=== PATIENT | female | born 1995 | race Caucasian/White ===

== ENCOUNTER 2017-09-01 13:22 | Observation (INO) | payer BC ==
[~2017-09-01] VITALS: Ht 165.1 cm; Wt 59.9 kg
[2017-09-01] MEDS ORDERED: SODIUM CHLORIDE 0.9% 1000ML 1,000 ML IV STA (14:18)
[2017-09-01] MEDS ORDERED: LISD30CA4 PO (14:42)
[2017-09-01 14:46] LABS: BASO % 0.5 %; BASO ABS # 0.03 K/uL (0-0.2); EOS % 2.1 %; EOS ABS # 0.12 K/uL (0-0.5); HEMATOCRIT 43.2 % (37-47); HEMOGLOBIN 15.1 g/dL (12.0-16.0); IG# 0.01 K/uL (0.00-0.02); LYMPH % 25.6 %; LYMPH ABS # 1.49 K/uL (1.2-3.4); MEAN CELL VOLUME 90.6 fL (80-100); MEAN CORPUSCULAR HEMOGLOBIN 31.7 pg (25-34); MEAN PLATELET VOLUME 10.5 fL (7.4-10.4); MONO % 6.7 %; MONO ABS # 0.39 K/uL (0.11-0.59); NEUT % 64.9 %; NEUT ABS # 3.79 K/uL (1.4-6.5); PLATELET COUNT 198 K/uL (130-400); RED CELL DISTRIBUTION WIDTH CV 13.4 % (11.5-14.5); RED CELL DISTRIBUTION WIDTH SD 44.2 fL (36.4-46.3); WHITE BLOOD COUNT 5.83 K/uL (4.8-10.8)
--- NOTE | 2017-09-01 14:49 | EMERGENCY ROOM VISIT NOTE ---
History Report prepared by Yunior: Edith Madden Under the Supervision of: Dr. Isidro Chen M.D. First contact with patient: 14:10 Chief Complaint: ABDOMINAL PAIN Stated Complaint: SEVERE STOMACH PAINS, NAUSEA Nursing Triage Summary: Pt reports mid abd pain and nausea since . Constipated x 2, did have a bowel movement today that was diarrhea. Hx of IBS. History of Present Illness The patient is a 21 year old female who presents to the Emergency Room with complaints of persistent mid abdominal pain starting 2 days ago. The patient currently rates her discomfort as a 6/10 in severity. The pain worsens with bending over, walking, coughing, and any type of movement. She has tried taking Tylenol to no significant relief. She has a history of IBS, but states that this pain is different from her typical IBS pain. She was constipated for the past 2 days and then had significant diarrhea today. She is having intermittent nausea and vomiting. She is not eating and drinking normally because of her symptoms. Her last menstrual period ended yesterday. She is on control. 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 She had open heart surgery for sinus venosus defect at age 14. She denies any previous abdominal surgeries. She has had several scopes in the past. She notes a history of H pylori and ulcers. Pt denies LOC, headache, fevers, chills, diaphoresis, visual changes, neck pain, chest pain, breathing difficulties, back pain, melena, hematochezia, urinary symptoms, numbness, weakness, lymphadenopathy, rash, or other complaints. Source of History: patient Onset: 2 days ago Position: abdomen (mid) Symptom Intensity: 6/10 Timing: other (persistent) Modifying Factors (Worsening): movement Associated Symptoms: + nausea, + vomiting, + diarrhea Note: Pt reports constipation. Review of Systems See HPI for pertinent positives and negatives. A total of ten systems were reviewed and were otherwise negative. Past Medical & Surgical Medical Problems: (1) IBS (irritable bowel syndrome) Family History Not known due to adoption Social History Smoking Status: Never Smoker Housing Status: lives with roommate Occupation Status: [employer] student Current/Historical Medications Scheduled PRN Lisdexamfetamine Dimesylate (Vyvanse), 30 MG PO DAILY PRN for PRN Allergies Coded Allergies: Lactose Intolerance (GI) (Unverified Allergy, Mild, GI SYMPTOMS, 09/01/17) Physical Exam Vital Signs Date Time Temp Pulse Resp B/P (MAP) Pulse Ox O2 Delivery O2 Flow Rate FiO2 09/01/17 17:37 58 20 119/63 100 Room Air 09/01/17 15:51 55 16 117/84 100 Room Air 09/01/17 15:26 60 16 98 Room Air 09/01/17 13:26 36.5 78 18 140/76 100 Room Air Physical Exam GENERAL: Awake, alert, well-appearing, in no distress HENT: Normocephalic, atraumatic. Oropharynx unremarkable. EYES: Normal conjunctiva. Sclera non-icteric. NECK: Supple. No nuchal rigidity. FROM. No masses. RESPIRATORY: Clear to auscultation. No wheezes. No rales. Normal respiratory effort. CARDIAC: Normal rate. Normal rhythm. No murmurs. No rubs. Extremities warm and well perfused. Pulses equal. No JVD. GI: Soft, non-distended. Minimal right lower and left lower tenderness to palpation. Moderate periumbilical tenderness to palpation. No rebound or guarding. No masses. RECTAL: Deferred. MUSCULOSKELETAL: Atraumatic. Chest examination reveals no tenderness. The back is symmetrical on inspection without obvious abnormality. There is no CVA tenderness to palpation. No joint edema. LOWER EXTREMITIES: Calves are equal size bilaterally and non-tender. No edema. No discoloration. NEURO: Normal sensorium. No sensory or motor deficits noted. SKIN: No rash or jaundice noted. Medical Decision & Procedures ER Provider Diagnostic Interpretation: Radiology results as stated below per my review and radiologist interpretation: ABD/PELVIS IV AND ORAL CONT CLINICAL HISTORY: 21 years-old Female presenting with acute lower abdominal pain. TECHNIQUE: Multidetector CT of the abdomen and pelvis was performed after the administration of oral and intravenous contrast. IV contrast: 93 mL of Optiray 320. A dose lowering technique was used consistent with the principles of ALARA (as low as reasonably achievable). COMPARISON: None. CT DOSE (mGy.cm): The estimated cumulative dose is 255.03 mGy.cm. FINDINGS: General Administrator topogram: Unremarkable. Lung bases: Lungs and pleural spaces clear. Normal heart size. No pericardial or pleural effusion. Liver: Normal morphology. No liver lesion. Mild periportal edema may be present. Patent hepatic vasculature. Biliary: No intrahepatic or extrahepatic biliary ductal dilatation. Normal gallbladder. Pancreas: Normal. Spleen: Normal. Adrenal glands: Normal. Kidneys and ureters: Normal. No hydronephrosis. Distal ureters poorly visualized. Bladder: Normal. Pelvic organs: Uterus and ovaries normal. Bowel: Significantly dilated and nonopacified appendix in the right lower quadrant. The appendix measures 15 mm in diameter. Significant surrounding periappendiceal fat infiltration. Numerous associated prominent mesenteric lymph nodes though no discrete adjacent fluid collection is evident. No bowel obstruction. Peritoneal cavity: No free fluid or intraperitoneal gas. No evidence of abscess. Lymph nodes: Prominent right lower quadrant mesenteric lymph nodes. No pathologically enlarged lymph nodes in abdomen or pelvis. Vasculature: Aorta and IVC patent and normal in caliber. Abdominal wall: Normal. Musculoskeletal: Normal. IMPRESSION: 1. Findings consistent with acute uncomplicated appendicitis. No perforation or abscess. Surgical consultation recommended. The report will be called/faxed according to standard departmental protocol. Electronically signed by: Parminder Vallejo M.D. 09/01/2017 5:29 PM Dictated Date/Time: 09/01/2017 5:25 PM Laboratory Results 09/01/17 14:05 Red Blood Count 4.77, Mean Corpuscular Volume 90.6, Mean Corpuscular Hemoglobin 31.7, Mean Corpuscular Hemoglobin Concent 35.0, Mean Platelet Volume 10.5, Neutrophils (%) (Auto) 64.9, Lymphocytes (%) (Auto) 25.6, Monocytes (%) (Auto) 6.7, Eosinophils (%) (Auto) 2.1, Basophils (%) (Auto) 0.5, Neutrophils # (Auto) 3.79, Lymphocytes # (Auto) 1.49, Monocytes # (Auto) 0.39, Eosinophils # (Auto) 0.12, Basophils # (Auto) 0.03 09/01/17 14:05 Test 09/01/17 14:05 09/01/17 14:10 White Blood Count 5.83 K/uL (4.8-10.8) Red Blood Count 4.77 M/uL (4.2-5.4) Hemoglobin 15.1 g/dL (12.0-16.0) Hematocrit 43.2 % (37-47) Mean Corpuscular Volume 90.6 fL (80-100) Mean Corpuscular Hemoglobin 31.7 pg (25-34) Mean Corpuscular Hemoglobin Concent 35.0 g/dl (32-36) Platelet Count 198 K/uL (130-400) Mean Platelet Volume 10.5 fL (7.4-10.4) Neutrophils (%) (Auto) 64.9 % Lymphocytes (%) (Auto) 25.6 % Monocytes (%) (Auto) 6.7 % Eosinophils (%) (Auto) 2.1 % Basophils (%) (Auto) 0.5 % Neutrophils # (Auto) 3.79 K/uL (1.4-6.5) Lymphocytes # (Auto) 1.49 K/uL (1.2-3.4) Monocytes # (Auto) 0.39 K/uL (0.11-0.59) Eosinophils # (Auto) 0.12 K/uL (0-0.5) Basophils # (Auto) 0.03 K/uL (0-0.2) RDW Standard Deviation 44.2 fL (36.4-46.3) RDW Coefficient of Variation 13.4 % (11.5-14.5) Immature Granulocyte % (Auto) 0.2 % Immature Granulocyte # (Auto) 0.01 K/uL (0.00-0.02) Anion Gap 6.0 mmol/L (3-11) Est Creatinine Clear Calc Drug Dose 98.9 ml/min Estimated GFR () 120.3 Estimated GFR (Non- 103.8 BUN/Creatinine Ratio 16.7 (10-20) Calcium Level 8.9 mg/dl (8.5-10.1) Total Bilirubin 0.4 mg/dl (0.2-1) Direct Bilirubin < 0.1 mg/dl (0-0.2) Aspartate Amino Transf (AST/SGOT) 18 U/L (15-37) Alanine Aminotransferase (ALT/SGPT) 21 U/L (12-78) Alkaline Phosphatase 80 U/L (45-117) Total Protein 8.3 gm/dl (6.4-8.2) Albumin 4.1 gm/dl (3.4-5.0) Lipase 139 U/L (73-393) Urine Color YELLOW Urine Appearance CLEAR (CLEAR) Urine pH 6.0 (4.5-7.5) Urine Specific Axis 1.014 (1.000-1.030) Urine Protein NEG (NEG) Urine Glucose (UA) NEG (NEG) Urine Ketones NEG (NEG) Urine Occult Blood NEG (NEG) Urine Nitrite NEG (NEG) Urine Bilirubin NEG (NEG) Urine Urobilinogen NEG (NEG) Urine Leukocyte Esterase NEG (NEG) Urine Test NEG (NEG) Laboratory results reviewed by me Medications Administered Medications (Trade) Dose Ordered Sig/Madi Route Start Time Stop Time Status Last Admin Dose Admin Sodium Chloride 1,000 ml @ 999 mls/hr Q1H1M STAT IV 09/01/17 14:18 09/01/17 15:18 DC 09/01/17 14:28 999 MLS/HR Ondansetron HCl (Zofran Inj) 4 mg NOW STAT IV 09/01/17 15:43 09/01/17 15:44 DC 09/01/17 15:52 4 MG Hydromorphone HCl (Dilaudid Inj) 0.5 mg NOW STAT IV 09/01/17 15:43 09/01/17 15:44 DC 09/01/17 15:55 0.5 MG ED Course 1413: The patient was evaluated in room A9B. A complete history and physical exam was performed. 1418: Sodium Chloride 1000 ml @ 999 mls/hr IV. 1540: I reevaluated the patient. Her pain is increased. She is asking for something for pain. 1543: Dilaudid Inj 0.5 mg IV, Zofran Inj 4 mg IV. 1650: I reevaluated the patient. She is feeling a lot better. 1807: I reevaluated the patient. On reexamination, she is tender just under the umbilicus to the right of midline with some guarding. I discussed the test results and treatment plan with her. The patient will be evaluated for further management. 1811: I discussed the patient's case with Shira Alexander [facility]C [facility] The patient will be evaluated for further treatment and disposition. Medical Decision Triage Nursing notes reviewed. The patient's presentation and history were concerning for abdominal pain. Etiologies such as appendicitis, diverticulitis, obstruction, inflammatory bowel disease, IBS, renal colic, PUD, biliary pathology, pancreatitis, mesenteric ischemia, aortic pathology, infections, genitourinary, UTI, perforated viscus, , ovarian cyst, PID, as well as others were entertained. The patient was evaluated. She declined analgesia. She was hydrated. Blood work, urinalysis and imaging were performed. Her blood work and urinalysis were unremarkable. The patient was not . She underwent CT imaging prep. She then noted increasing pain and was given a dose of Dilaudid and Zofran. She felt better with this. The patient underwent CT imaging and this was concerning for acute appendicitis. The patient was reexamined. She is tender in the area of the appendix. She does have some mild guarding.General surgery was consulted. Patient was evaluated in the ER for further management. Medication Reconcilliation Current Medication List: was personally reviewed by me Blood Pressure Screening Patient's blood pressure: Normal blood pressure Blood pressure disposition: Did not require urgent referral Consults Time Called: 1804 Consulting Physician: PANCHO Kan general surgery Returned Call: 1810 Discussed the patient's case. The patient will be evaluated for further treatment and disposition. Impression Primary Impression: Acute appendicitis Scribe Attestation The scribe's documentation has been prepared under my direction and personally reviewed by me in its entirety. I confirm that the note above accurately reflects all work, treatment, procedures, and medical decision making performed by me. Departure Information Dispostion Being Evaluated By Surgeon Referrals No Doctor, Assigned (PCP) Patient Instructions My [facility]
[2017-09-01 15:00] LABS: ALBUMIN 4.1 gm/dl (3.4-5.0); ALT/SGPT 21 U/L (12-78); AST/SGOT 18 U/L (15-37); BLOOD UREA NITROGEN 14 mg/dl (7-18); CALCIUM 8.9 mg/dl (8.5-10.1); CARBON DIOXIDE 25 mmol/L (21-32); CREATININE 0.81 mg/dl (0.60-1.20); GLUCOSE 79 mg/dl (70-99); LIPASE 139 U/L (73-393); POTASSIUM 3.5 mmol/L (3.5-5.1); SODIUM 140 mmol/L (136-145)
[2017-09-01 15:03] LABS: ALKALINE PHOSPHATASE 80 U/L (45-117); TOTAL PROTEIN 8.3 gm/dl (6.4-8.2)
[2017-09-01] MEDS ORDERED: OPTIRAY 320 IV PRN (15:30)
[2017-09-01] MEDS ORDERED: ONDANSETRON INJ 2 MG/ML 2 ML VIAL IV STA (15:43)
[2017-09-01] MEDS ORDERED: HYDROmorphone INJ 0.5 MG/0.5 ML SYR IV STA (15:43)
--- NOTE | 2017-09-01 17:30 | DIAGNOSTIC IMAGING REPORT ---
ABD/PELVIS IV AND ORAL CONT CLINICAL HISTORY: 21 years-old Female presenting with acute lower abdominal pain. TECHNIQUE: Multidetector CT of the abdomen and pelvis was performed after the administration of oral and intravenous contrast. IV contrast: 93 mL of Optiray 320. A dose lowering technique was used consistent with the principles of ALARA (as low as reasonably achievable). COMPARISON: None. CT DOSE (mGy.cm): The estimated cumulative dose is 255.03 mGy.cm. FINDINGS: Hr Assistant topogram: Unremarkable. Lung bases: Lungs and pleural spaces clear. Normal heart size. No pericardial or pleural effusion. Liver: Normal morphology. No liver lesion. Mild periportal edema may be present. Patent hepatic vasculature. Biliary: No intrahepatic or extrahepatic biliary ductal dilatation. Normal gallbladder. Pancreas: Normal. Spleen: Normal. Adrenal glands: Normal. Kidneys and ureters: Normal. No hydronephrosis. Distal ureters poorly visualized. Bladder: Normal. Pelvic organs: Uterus and ovaries normal. Bowel: Significantly dilated and nonopacified appendix in the right lower quadrant. The appendix measures 15 mm in diameter. Significant surrounding periappendiceal fat infiltration. Numerous associated prominent mesenteric lymph nodes though no discrete adjacent fluid collection is evident. No bowel obstruction. Peritoneal cavity: No free fluid or intraperitoneal gas. No evidence of abscess. Lymph nodes: Prominent right lower quadrant mesenteric lymph nodes. No pathologically enlarged lymph nodes in abdomen or pelvis. Vasculature: Aorta and IVC patent and normal in caliber. Abdominal wall: Normal. Musculoskeletal: Normal. IMPRESSION: 1. Findings consistent with acute uncomplicated appendicitis. No perforation or abscess. Surgical consultation recommended. The report will be called/faxed according to standard departmental protocol. Electronically signed by: Parminder Vallejo M.D. 09/01/2017 5:29 PM Dictated Date/Time: 09/01/2017 5:25 PM
[2017-09-01] MEDS ORDERED: BUPIVACAINE/EPINEPHRINE 0.5% MPF 1:200,000 30 ML VIAL ONE (19:05)
--- NOTE | 2017-09-01 19:25 | History and Physical ---
History & Physical Date Sep 01, 2017. Chief Complaint Lower right quadrant abdominal pain. History of Present Illness The patient is a 21 year old female with past medical history significant for Iritable Bowel Syndrome (colonoscopy 2 months ago, per patient was normal) complaints of abdominal pain that began 2 days ago. Pain began at umbilicus and then localized to right lower quadrant. She reports feeling mild nausea. Patient is afebrile. WBC within normal limits. Pain medication administered in ED has helped a bit with abdominal pain. CT scan reveals acute, uncomplicated, appendicitis. No perforation. Last meal was a few sips of soup at 12 noon. Patient is [employer] student. No anticoagulation medications. Past Medical/Surgical History Medical Problems: (1) IBS (irritable bowel syndrome) Additional History Hepatic Disease: No Endocrine Disorder: No Kidney Disease: No Hypertension: No Heart Disease: No Bleeding Tendencies: No Infectious Diseases: No Allergies Coded Allergies: Lactose Intolerance (GI) (Unverified Allergy, Mild, GI SYMPTOMS, 09/01/17) Home Medications Scheduled PRN Lisdexamfetamine Dimesylate (Vyvanse), 30 MG PO DAILY PRN for PRN Physical Examination Skin: warm/dry Eyes: normal inspection Respiratory/Chest: no respiratory distress Abdomen / GI: normal bowel sounds, + pertinent finding (tender with palpation in right lower quadrant ) Neurologic/Psych: alert, oriented x 3 Plan of Treatment 21-year-old healthy female with CT confirmed acute non-perforated appendicitis Will proceed with Laparoscopic Appendectomy, Possible Open Appendectomy in OR with Dr. Carter. Surgery reviewed with patient. Risks of surgery reviewed with patient, including infection, bleeding, injury. Patient verbalized understanding and agreement. Will proceed with surgery. OR notified. 2 g Mefoxin SCDs
[2017-09-01] MEDS ORDERED: PROPOFOL IV EMULSION 10 MG/ML 20 ML VIAL IV ONE (19:44)
[2017-09-01] MEDS ORDERED: SUCCINYLCHOLINE 100MG/5ML SYR IV ONE (19:48)
[2017-09-01] MEDS ORDERED: CEFOXITIN SOD 1 GM VIAL ONE (19:48)
[2017-09-01] MEDS ORDERED: FENTANYL CITRATE INJ 50 MCG/1 ML 2 ML VIAL ONE ×3 (19:49→20:39)
[2017-09-01] MEDS ORDERED: MIDAZOLAM HCL 1 MG/ML 2ML VIAL ONE (19:51)
[2017-09-01] MEDS ORDERED: CEFOXITIN IV 2,000 MG in DEXTROSE 5% 50ML 50 ML IV SCH (20:00)
[2017-09-01] MEDS ORDERED: ONDANSETRON INJ 2 MG/ML 2 ML VIAL ONE (20:33)
[2017-09-01] MEDS ORDERED: DEXAMETHASONE SOD INJ 4 MG/ML VIAL ONE (20:34)
[2017-09-01] MEDS ORDERED: NEOSTIGMINE METHYLSULFATE 5 MG/5 ML SYR ONE (20:44)
[2017-09-01] MEDS ORDERED: GLYCOPYRROLATE INJ 0.2 MG/ML VIAL ONE (20:44)
--- NOTE | 2017-09-01 20:49 | [facility] Post Operative Brief Note ---
Immediate Operative Summary Operative Date Sep 01, 2017. Pre-Operative Diagnosis Acute Appendicitis Post-Operative Diagnosis Acute Appendicitis Procedure(s) Performed Laparoscopic Appendectomy Surgeon Dr. Carter Avionics Test Technician Surgeon(s) Jose Quinn PA-C Estimated Blood Loss 5cc Findings Consistent with Post-Op Diagnosis Specimens A. Appendix Anesthesia Type General Complication(s) none
--- NOTE | 2017-09-01 21:05 | [facility] Operative Report ---
Operative Report Operative Date Sep 01, 2017. Pre-Operative Diagnosis Acute Appendicitis Post-Operative Diagnosis Acute Appendicitis Procedure(s) Performed Laparoscopic Appendectomy Surgeon Dr. Carter Upper Cutter Machine Surgeon(s) Jose Quinn PA-C Estimated Blood Loss 5cc Specimens A. Appendix Anesthesia Type General Complication(s) none Description of Procedure After informed consent was obtained the patient was taken to the operating room and placed in supine position. After successful intubation a Brasher catheter was placed and the left arm was tucked. A Brasher catheter was inserted sterilely. I began by making a periumbilical incision with an 11 blade scalpel and carried this down through the soft tissue using electrocautery. The anterior rectus fascia was opened using electrocautery and 2 #0 Vicryl stay sutures were placed. The peritoneum was elevated using hemostats and incised under direct vision using a Metzenbaum scissor. A finger sweep was performed. A 12 mm Powers trocar was placed and the abdomen was insufflated to 18 mmHg. A laparoscope was inserted and the abdomen was examined in 360. A suprapubic 5 mm port and a left lower quadrant 12 mm port were placed under direct vision. The patient was air planed to the left as well as placed in a slight Trendelenburg position. We began by looking in the right lower quadrant. We were able to readily identify the appendix and it was grossly inflamed. It had not perforated. There is a small amount of purulent fluid in the right lower quadrant and the pelvis. We immediately irrigated and suctioned this out. I was able to use primarily blunt dissection to pull the appendix away from the right lower quadrant sidewall. Next I used a [place] dissector to create a small window in the mesentery of the appendix. I then transected the appendix at its base with the cecum using a purple cartridge 60 mm stapler. I used a second purple cartridge MARIO to transect the mesentery of the appendix at this was inflamed also. it was then placed into an Endo Catch bag and removed from the camera port site. We thoroughly irrigated the right lower quadrant as well as the pelvis. There was adequate hemostasis. I ran the small bowel backwards from the terminal ileum for about 6 feet all of which was normal. All the peritoneal surfaces were normal. Small/ large bowel, liver, stomach etc. all appeared grossly normal. We did a final irrigation and then removed all the trochars and desufflated the abdomen. The fascia of the camera port as well as the left lower quadrant were closed using 0 Vicryl in [id number] fashion. Wounds were all irrigated and closed using 4-0 Monocryl. Marcaine was injected around them for postoperative analgesia and skin glue used as a dressing. The patient was awakened extubated and transferred to recovery in stable condition. My physician's imaging assistant was present through the entire case. he assisted with prepping the patient and helped with exposure for port placement, helped run the camera and helped with fascial/wound closure at the end of the procedure as well as dressing placement. I attest to the content of the Intraoperative Record and any orders documented therein. Any exceptions are noted below. I attest to the content of the Intraoperative Record and any orders documented therein. Any exceptions are noted below.
[2017-09-01] MEDS: LACTATED RINGER'S 1000ML 1,000 ML IV SCH (21:08)
[2017-09-01] MEDS ORDERED: HYDROmorphone INJ 2 MG/ML SYR/VIAL ONE (21:13)
[2017-09-01] MEDS ORDERED: ONDANSETRON INJ 2 MG/ML 2 ML VIAL IV PRN ×2 (21:15)
[2017-09-01] MEDS ORDERED: KETOROLAC TROMETHAMINE 30 MG/ML VIAL IV. PRN (21:15)
[2017-09-01] MEDS ORDERED: ACETAMINOPHEN IV 100 ML IV PRN (21:15)
[2017-09-01] MEDS ORDERED: HYDROmorphone INJ 0.5 MG/0.5 ML SYR IV PRN (21:15)
[2017-09-01] MEDS ORDERED: EpHEDrine SULFATE INJ 50 MG/ML AMP IV PRN (21:15)
[2017-09-01] MEDS ORDERED: ATROPINE SULFATE 0.1 MG/ML 5ML SYR IV PRN (21:15)
[2017-09-01] MEDS ORDERED: FLUMAZENIL 0.1 MG/1 ML 10 ML VIAL IV PRN (21:15)
[2017-09-01] MEDS ORDERED: HYDROmorphone INJ 2 MG/ML SYR/VIAL IV PRN (21:15)
[2017-09-01] MEDS ORDERED: NALOXONE HCL 0.4 MG/1 ML VIAL/CARP IV PRN (21:15)
[2017-09-01] MEDS ORDERED: PROMETHAZINE HCL INJ 12.5 MG in SODIUM CHLORIDE 0.9% 50ML 50 ML IV PRN (21:15)
[2017-09-01] MEDS ORDERED: HYDROmorphone INJ 1 MG/ML SYR IV PRN (21:15)
--- NOTE | 2017-09-01 21:15 | Discharge Instructions ---
Discharge Instructions Date of Service Sep 01, 2017. Admission Reason for Admission: Severe Stomach Pains, Nausea Discharge Discharge Diagnosis / Problem: Acute appendicitis Discharge Goals Goal(s): Decrease discomfort, Improve function Activity Recommendations Activity Limitations: as noted below Lifting Limitations: no more than 10 pounds, until after follow-up appointment Exercise/Sports Limitations: until after follow-up appointment May Resume Sexual Activity: after follow-up appointment Shower/Bathe: tomorrow Driving or Machine Use: resume 3 days after discharge (Please do not drive while using narcotic pain medication) . Instructions / Follow-Up Instructions / Follow-Up You have surgical glue covering your incision sites. Please allow this to fall off on its own. You have been prescribed [place] to take as needed for pain relief. Please use as directed. Follow-up with Dr. Carter in 1-2 weeks. Please contact our office at [phone] to schedule an appointment if you have not done so already. Please contact our office with any further questions or concerns. [facility]. [address] [place] [address]. Current Hospital Diet Patient's current hospital diet: Clear Liquid Diet Discharge Diet Recommended Diet: Regular Diet Procedures Procedures Performed: Laparoscopic Appendectomy Pending Studies Studies pending at discharge: yes List of pending studies: pathology Medical Emergencies . Who to Call and When: Medical Emergencies: If at any time you feel your situation is an emergency, please call 911 immediately. . Non-Emergent Contact Non-Emergency issues call your: Primary Care Provider, Surgeon Call Non-Emergent contact if: you have a fever, temperature is above 101.5, your pain is not controlled, your pain is worsening, wound has increased drainage, wound has increased redness . "Provider Documentation" section prepared by Jose Quinn. . [place] Drug Monitoring Program Search Results: patient reviewed within database, no issues identified
[2017-09-01] MEDS ORDERED: HYDR-5688 PO (21:16)
[2017-09-01] MEDS ORDERED: IV FLUIDS COMPLETED PRN (21:45)
--- NOTE | 2017-09-01 21:46 | Anesthesiology Progress Note ---
Anesthesia Post Op Note Date & Time Sep 01, 2017 at 21:46 Vital Signs Pain Intensity: 7.0 Vital Signs Past 12 Hours Date Time Temp Pulse Resp B/P (MAP) Pulse Ox O2 Delivery O2 Flow Rate FiO2 09/01/17 21:28 58 09/01/17 21:28 58 100 09/01/17 21:26 101/71 09/01/17 21:23 59 13 09/01/17 21:23 58 13 100 09/01/17 21:21 108/67 09/01/17 21:18 60 11 100 09/01/17 21:18 63 11 09/01/17 21:16 113/69 09/01/17 21:13 64 17 100 09/01/17 21:13 63 17 09/01/17 21:11 109/65 09/01/17 21:09 110/72 09/01/17 21:08 72 22 94 09/01/17 21:08 36.1 74 21 109/65 99 Room Air 09/01/17 21:08 74 22 09/01/17 19:27 80 20 117/65 98 09/01/17 19:03 63 09/01/17 17:37 58 20 119/63 100 Room Air 09/01/17 15:51 55 16 117/84 100 Room Air 09/01/17 15:26 60 16 98 Room Air 09/01/17 13:26 36.5 78 18 140/76 100 Room Air Notes Mental Status: alert / awake / arousable, participated in evaluation Pt Amnestic to Procedure: Yes Nausea / Vomiting: adequately controlled Pain: adequately controlled Airway Patency, RR, SpO2: stable & adequate BP & HR: stable & adequate Hydration State: stable & adequate Anesthetic Complications: no major complications apparent
[2017-09-01 22:22] VITALS: BP 119/74; PULSE 63; TEMP 36.8; O2SAT 100; Ht 165.1 cm; Wt 59.9 kg
[2017-09-01 22:52] VITALS: O2SAT 100
[2017-09-01] MEDS: HYDROCODONE/ACETAMIN 5/325MG TAB PO PRN ×2 (23:00→23:59)
[2017-09-01 23:14] VITALS: BP 126/86; PULSE 63; TEMP 36.4; O2SAT 100
[2017-09-02 00:16] VITALS: BP 109/73; PULSE 69; TEMP 36.7; O2SAT 98
[2017-09-02 01:40] VITALS: BP 102/72; PULSE 69; TEMP 36.6; O2SAT 98
[2017-09-02 04:06] VITALS: BP 104/64; PULSE 62; TEMP 36.7; O2SAT 99
[2017-09-02] MEDS: HYDROCODONE/ACETAMIN 5/325MG TAB PO PRN ×2 (05:39→10:44)
--- NOTE | 2017-09-02 06:20 | Surgery Progress Note ---
Surgery Progress Note Date of Service Sep 02, 2017. Subjective Post OP Day: 1 + feeling well, + flatus, + pain controlled, + diet (Tolerating regular diet), No complaints, No bowel movement, No nausea, No vomiting Patient did have some urinary retention w/ associated pain this AM. Bladder scan showed Approximately 300 ml of retained urine. Patient was straight cathed at this time resulting in relief of her symptoms. Objective Vital Signs: Date Time Temp Pulse Resp B/P (MAP) Pulse Ox O2 Delivery O2 Flow Rate FiO2 09/02/17 04:06 36.7 62 16 104/64 (77) 99 Room Air 09/02/17 01:40 36.6 69 16 102/72 (82) 98 Room Air 09/02/17 00:16 36.7 69 16 109/73 (85) 98 Room Air 09/01/17 23:14 36.4 63 16 126/86 (99) 100 Room Air 09/01/17 22:52 100 Room Air 09/01/17 22:22 36.8 63 14 119/74 100 Room Air 09/01/17 22:06 62 119/68 98 09/01/17 22:06 61 16 09/01/17 22:01 62 111/68 95 09/01/17 22:01 62 09/01/17 21:57 36.7 98 Room Air 09/01/17 21:56 64 16 09/01/17 21:56 63 111/69 98 09/01/17 21:56 36.7 09/01/17 21:55 63 16 93 09/01/17 21:55 63 09/01/17 21:51 123/69 09/01/17 21:50 58 16 100 09/01/17 21:50 58 09/01/17 21:46 112/73 09/01/17 21:45 63 09/01/17 21:45 63 100 09/01/17 21:44 60 09/01/17 21:44 60 14 98 09/01/17 21:41 115/68 09/01/17 21:39 59 09/01/17 21:39 59 16 100 09/01/17 21:36 117/70 09/01/17 21:34 60 15 100 09/01/17 21:34 60 18 21:31 118/74 09/01/17 21:29 66 09/01/17 21:29 65 16 100 09/01/17 21:28 58 09/01/17 21:28 58 100 09/01/17 21:26 101/71 09/01/17 21:23 59 13 09/01/17 21:23 58 13 100 09/01/17 21:21 108/67 09/01/17 21:18 60 11 100 09/01/17 21:18 63 11 09/01/17 21:16 113/69 09/01/17 21:13 64 17 100 09/01/17 21:13 63 17 09/01/17 21:11 109/65 09/01/17 21:09 110/72 09/01/17 21:08 72 22 94 09/01/17 21:08 36.1 74 21 109/65 99 Room Air 09/01/17 21:08 74 22 09/01/17 19:27 80 20 117/65 98 09/01/17 19:03 63 09/01/17 17:37 58 20 119/63 100 Room Air 09/01/17 15:51 55 16 117/84 100 Room Air 09/01/17 15:26 60 16 98 Room Air 09/01/17 13:26 36.5 78 18 140/76 100 Room Air General Appearance: WD/WN, no apparent distress Head: normocephalic, atraumatic Respiratory/Chest: no respiratory distress, no accessory muscle use Abdomen: non distended, soft, no organomegaly, no pulsatile mass, + tenderness (Incisional) Incision(s): clean, dry, intact Laboratory Results: Results Past 24 Hours Test 09/01/17 14:05 09/01/17 14:10 09/02/17 04:44 Range/Units White Blood Count 5.83 4.8-10.8 K/uL Red Blood Count 4.77 4.2-5.4 M/uL Hemoglobin 15.1 12.0-16.0 g/dL Hematocrit 43.2 37-47 % Mean Corpuscular Volume 90.6 80-100 fL Mean Corpuscular Hemoglobin 31.7 25-34 pg Mean Corpuscular Hemoglobin Concent 35.0 32-36 g/dl Platelet Count 198 130-400 K/uL Mean Platelet Volume 10.5 7.4-10.4 fL Neutrophils (%) (Auto) 64.9 % Lymphocytes (%) (Auto) 25.6 % Monocytes (%) (Auto) 6.7 % Eosinophils (%) (Auto) 2.1 % Basophils (%) (Auto) 0.5 % Neutrophils # (Auto) 3.79 1.4-6.5 K/uL Lymphocytes # (Auto) 1.49 1.2-3.4 K/uL Monocytes # (Auto) 0.39 0.11-0.59 K/uL Eosinophils # (Auto) 0.12 0-0.5 K/uL Basophils # (Auto) 0.03 0-0.2 K/uL RDW Standard Deviation 44.2 36.4-46.3 fL RDW Coefficient of Variation 13.4 11.5-14.5 % Immature Granulocyte % (Auto) 0.2 % Immature Granulocyte # (Auto) 0.01 0.00-0.02 K/uL Sodium Level 140 136-145 mmol/L Potassium Level 3.5 3.5-5.1 mmol/L Chloride Level 109 98-107 mmol/L Carbon Dioxide Level 25 21-32 mmol/L Anion Gap 6.0 3-11 mmol/L Blood Urea Nitrogen 14 7-18 mg/dl Creatinine 0.81 0.60-1.20 mg/dl Est Creatinine Clear Calc Drug Dose 98.9 ml/min Estimated GFR () 120.3 Estimated GFR (Non- 103.8 BUN/Creatinine Ratio 16.7 10-20 Random Glucose 79 70-99 mg/dl Calcium Level 8.9 8.5-10.1 mg/dl Total Bilirubin 0.4 0.2-1 mg/dl Direct Bilirubin < 0.1 0-0.2 mg/dl Aspartate Amino Transf (AST/SGOT) 18 15-37 U/L Alanine Aminotransferase (ALT/SGPT) 21 12-78 U/L Alkaline Phosphatase 80 45-117 U/L Total Protein 8.3 6.4-8.2 gm/dl Albumin 4.1 3.4-5.0 gm/dl Lipase 139 73-393 U/L Urine Color YELLOW Urine Appearance CLEAR CLEAR Urine pH 6.0 4.5-7.5 Urine Specific [place] 1.014 1.000-1.030 Urine Protein NEG NEG Urine Glucose (UA) NEG NEG Urine Ketones NEG NEG Urine Occult Blood NEG NEG Urine Nitrite NEG NEG Urine Bilirubin NEG NEG Urine Urobilinogen NEG NEG Urine Leukocyte Esterase NEG NEG Urine Test NEG NEG Assessment & Plan POD #1 s/p lap appy Doing well, pain controlled, incisions clean, dry and intact. Tolerating regular diet, No N/V. Some urinary retention this AM - straight cathed. Probable D/C today if patient continues to do well and urinary function returns. Will discuss findings with Dr. Carter. Please contact with questions or concerns.
[2017-09-02 07:00] VITALS: BP 107/64; PULSE 60; TEMP 36.8; O2SAT 98
[2017-09-02] MEDS: LACTATED RINGER'S 1000ML 1,000 ML IV SCH (07:19)
[2017-09-02 07:35] LABS: BASO % 0.2 %; BASO ABS # 0.01 K/uL (0-0.2); HEMATOCRIT 38.3 % (37-47); HEMOGLOBIN 13.3 g/dL (12.0-16.0); IG# 0.01 K/uL (0.00-0.02); LYMPH % 9.5 %; LYMPH ABS # 0.56 K/uL (1.2-3.4); MEAN CELL VOLUME 89.7 fL (80-100); MEAN CORPUSCULAR HEMOGLOBIN 31.1 pg (25-34); MEAN CORPUSCULAR HGB CONC 34.7 g/dl (32-36); MEAN PLATELET VOLUME 10.1 fL (7.4-10.4); MONO % 3.9 %; MONO ABS # 0.23 K/uL (0.11-0.59); NEUT % 86.2 %; NEUT ABS # 5.07 K/uL (1.4-6.5); PLATELET COUNT 193 K/uL (130-400); RED CELL DISTRIBUTION WIDTH CV 13.2 % (11.5-14.5); RED CELL DISTRIBUTION WIDTH SD 43.2 fL (36.4-46.3); WHITE BLOOD COUNT 5.88 K/uL (4.8-10.8)
[2017-09-02 10:56] VITALS: BP 107/64; PULSE 60; TEMP 36.8; O2SAT 98
--- NOTE | 2017-09-04 11:36 | Discharge Summary ---
Discharge Summary Date of Service Sep 04, 2017. Admission Date/Reason Sep 01, 2017 at 21:11 Acute Appendicitis. Discharge Date/Disposition Sep 02, 2017 Home Diagnosis Principal Diagnosis: Acute Appendicitis Procedure(s) Performed Laparoscopic Appendectomy Medication Reconciliation Morrison 5mg/325mg 1-2 Tablets PO Q4H PRN for pain x 3 days. Disp: 20 Tablets. Admission Physical Exam As per Admitting History & Physical. Hospital Course 09/01/17: Patient is a 21F who presented to the ED this evening with abdominal pain x 2 days. Her pain began around her umbilicus and then localized in her RLQ. PMHx IBS. Patient did have a colonoscopy 2 months ago which was normal. She also reports nausea but no vomiting. Denies history of previous abdominal surgeries, or use of blood thinning or anticoagulant medications. WBC WNL, afebrile. CT shows findings significant for acute appendicitis, no perforation. At this time it was decided to take her to the OR for laparoscopic appendectomy, possible open with Dr. Carter. Consents signed, pre-op antibiotics given. The procedure was performed successfully without complications. The patient was then sent to the ICU for post-op recovery and then admitted on observation to med/surg for post-op care. 09/02/17: POD #1 s/p lap appy. Doing well, pain controlled, some expected incisional tenderness. Incisions clean, dry and intact. Tolerating regular diet, No N/V. Patient did have some urinary retention earlier this AM and was straight cathed. Patient was discharged later today once her urinary function returned with instructions on limitations and wound care. She was sent home with a prescription for Morrison to take as needed for pain relief. She was given instructions to follow-up with Dr. Carter in the general surgery clinic. Discharge Instructions Please refer to the electronic Patient Visit Report (Discharge Instructions) for additional information.
== END 2017-09-02 11:35 | disposition home or self-care (01) ==
LOC: C.EDB 13:23 → C.MSW 21:11 → ENRESERV 21:39
PROVIDERS: ADMIT Surgery; ATTEND Surgery
DX: K35.80 Unspecified acute appendicitis (principal); K21.9 Gastro-esophageal reflux disease without esophagitis; K58.9 Irritable bowel syndrome, unspecified; F90.9 Attention-deficit hyperactivity disorder, unspecified type; E73.9 Lactose intolerance, unspecified; Z87.11 Personal history of peptic ulcer disease